=== PATIENT | female | born 1960 | race Caucasian/White ===

== ENCOUNTER 2016-05-23 15:29 | Emergency (ER) | payer BC ==
[~2016-05-23] VITALS: Ht 170.2 cm; Wt 93.0 kg
[~2016-05-23 15:29] MED LIST: AUGMENTIN500 MG PO; BABY ASPIRIN81 M1 PO; BENTYL20 MG PO; BLOOD PRESSURE; CELEXA; COLACE100 MG PO; CYCLOBENZAPRINE5 MG PO; GLIMEPIRIDE4 MG PO; GLUCOPHAGE1000 MG PO; Habitrol,Nicoderm CQ TD; Halfprin PO; KEFLEX500 MG PO; LISINOPRIL; LISINOPRIL40 MG PO; LOPRESSOR25 MG PO; MEDROL DOSEPAK4 MG PO; MOTRIN600 MG PO; NAPROSYN500 MG PO; NORVASC5 MG PO; NYSTATIN15 GM PO; PRAVACHOL PO; SIMVASTATIN; TOBRASOL5 ML LEFT EYE; TORADOL10 MG PO; TYLENOL WITH C1 EACH PO; ULTRAM50 MG PO; ZANAFLEX2 MG PO; ZITHROMAX Z-PA250 MG PO; ZOFRAN ODT8 MG PO; Zestril,Prinivil PO; Zocor PO
[2016-05-23] MEDS ORDERED: ULTRAM50 MG PO ×2 (16:48→16:58)
[2016-05-23] MEDS ORDERED: NAPROSYN500 MG PO ×2 (16:48→16:58)
[2016-05-23 17:03] VITALS: BP 155/87
== END 2016-05-23 17:05 | disposition home or self-care (01) ==
LOC: EME 15:29
DX: S20.212A Contusion of left front wall of thorax, initial encounter (principal); E11.9 Type 2 diabetes mellitus without complications; I10 Essential (primary) hypertension; F17.200 Nicotine dependence, unspecified, uncomplicated; W10.9XXA Fall (on) (from) unspecified stairs and steps, initial encounter
CPT/HCPCS: 71100; 99281; 99283

== ENCOUNTER 2016-08-01 15:33 | Emergency (ER) | payer BC ==
[~2016-08-01] VITALS: Ht 170.2 cm; Wt 91.4 kg
[2016-08-01 16:23] LABS: HEMATOCRIT 38.7 % (36.0-46.0); MCH 29.9 PG (29.0-34.0); MCHC 33.1 G/DL (30.0-36.0); MCV 90.4 FL (83-99); MEAN PLAT.VOLUME 9.9 uM^3 (9.5-12.4); PLATELET COUNT 302 K/uL (156-360); RBC DIS.WIDTH-CV 12.3 % (11.8-14.6); RBC DIS.WIDTH-SD 40.5 % (39-53); RED BLOOD COUNT 4.28 M/uL (3.80-5.20)
[2016-08-01 16:24] LABS: WHITE BLOOD COUNT 13.5 K/uL (4.1-10.2)
[2016-08-01 16:35] LABS: CHLORIDE 106 mEq/L (99-109); POTASSIUM 4.2 mEq/L (3.7-5.4); SODIUM 139 mEq/L (136-147)
[2016-08-01 16:37] LABS: GLUCOSE 137 mg/dL (70-99)
[2016-08-01 16:38] LABS: ANION GAP 11 MEQ/L (2-14)
[2016-08-01 16:39] LABS: TOTAL BILIRUBIN 0.3 mg/dL (0.0-1.0)
[2016-08-01 16:40] LABS: ALKALINE PHOSPHATASE 65 IU/L (3-129)
[2016-08-01 16:41] LABS: GFR ESTIMATE (CALCULATED) > 59 mL/min/
[2016-08-01 16:42] LABS: UREA NITROGEN (BUN) 13 mg/dL (9-23)
[2016-08-01 16:44] LABS: TROP-I INTERPRETATION NEGATIVE; TROPONIN-I < 0.01 ng/mL (0.0-0.30)
[2016-08-01 16:44] LABS: LIPASE 32 U/L (1.0-51.0)
[2016-08-01 17:32] LABS: ADD MIUA? YES; BILIRUBIN NEGATIVE; BLOOD NEGATIVE; COLOR YELLOW ((YELLOW)); GLUCOSE (STRIP) NEGATIVE; KETONES NEGATIVE; LEUKOCYTES NEGATIVE; NITRITE NEGATIVE; PROTEIN (STRIP) NEGATIVE; SPECIFIC GRAVITY 1.012 (1.000-1.030); UROBILINOGEN 0.2 MG/DL (0.2-1.0)
[2016-08-01 17:57] LABS: BACTERIA 1+ /HPF; CALCIUM OXALATE CRYSTALS 1+ /HPF; CASTS PRESENT /LPF; CRYSTALS PRESENT; EPITHELIAL CELLS 2+ /HPF; MUCUS 3+ /LPF; RED BLOOD CELLS NONE SEEN /HPF (0-5)
[2016-08-01 17:58] LABS: WHITE BLOOD CELLS 0-5 /HPF (0-5)
[2016-08-01 18:34] LABS: C DIFF TOXIN NEGATIVE (NEGATIVE)
[2016-08-01] MEDS ORDERED: ZOFRAN ODT4 MG PO (18:35)
[2016-08-01 18:37] LABS: PROBE CHECK PASS; SPECIMEN PROCESSING CONTROL PASS
[2016-08-01 19:44] VITALS: BP 140/78
== END 2016-08-01 19:45 | disposition home or self-care (01) ==
LOC: EME 15:33
PROVIDERS: Nurse Practitioner Family
DX: R10.11 Right upper quadrant pain (principal); R10.12 Left upper quadrant pain; R11.2 Nausea with vomiting, unspecified; R19.7 Diarrhea, unspecified; I45.10 Unspecified right bundle-branch block; I10 Essential (primary) hypertension; J45.909 Unspecified asthma, uncomplicated; E11.9 Type 2 diabetes mellitus without complications; F17.200 Nicotine dependence, unspecified, uncomplicated; Z79.84 Long term (current) use of oral hypoglycemic drugs
CPT/HCPCS: 74177; 80053; 81003; 83690; 84484; 85027; 87493; 87506; 93005; 99281; 99284; J7040